=== PATIENT | female | born 1995 | race Caucasian/White ===

== ENCOUNTER → 2018-04-10 | Outpatient (CLI) | payer SELFPAY, OTHER ==
[2018-04-10 17:54] LABS: BASO % 0.3 % (0.0-1.0); EOS # 0.1 10^3/uL (0.0-0.50); HEMATOCRIT 37.8 % (36.0-47.0); IMMATURE GRANULOCYTE % 0.4 % (0-3.0); LYMPH # 1.5 10^3/uL (1.5-6.5); MEAN CORPUSCULAR HEMOGLOBIN 30.7 pg (27.0-33.0); MEAN CORPUSCULAR HGB CONC 34.4 g/dl (32.0-36.5); MEAN CORPUSCULAR VOLUME 89.2 fl (80.0-96.0); MONO # 0.3 10^3/uL (0.0-0.8); MONO % 3.9 % (0.0-5.0); NEUTROPHILS % 75.4 % (36.0-66.0); PLATELET COUNT, AUTOMATED 353 10^3/uL (150-450); RED BLOOD COUNT 4.24 10^6/uL (4.00-5.40); RED CELL DISTRIBUTION WIDTH 14.2 % (11.5-14.5)
[2018-04-10 21:10] LABS: CHLAMYDIA DNA AMPLIFICATION NEGATIVE (NEGATIVE); GC DNA AMPLIFICATION NEGATIVE (NEGATIVE)
[2018-04-12 09:18] LABS: RUBELLA IgG QUALITATIVE IMMUNE (IMMUNE)
[2018-04-12 09:33] LABS: HBsAg Prenatal NEGATIVE (NEGATIVE)
[2018-04-12 09:46] LABS: HEPATITIS C VIRUS ABY INDEX 0.1 INDEX (<0.8)
[2018-04-12 09:47] LABS: HIV 1&2 SCREEN CENTAUR NEGATIVE (NEGATIVE)
== END ==
LOC: M SMT 14:45
DX: Z34.82 Encounter for supervision of other normal pregnancy, second trimester (principal); Z3A.19 19 weeks gestation of pregnancy; Z36.89 Encounter for other specified antenatal screening
CPT/HCPCS: 86762

== ENCOUNTER → 2018-05-21 | Outpatient (CLI) | payer OTHER | LOC: M RAD 13:38 | DX: Z34.82 Encounter for supervision of other normal pregnancy, second trimester (principal) ==

== ENCOUNTER 2018-06-02 18:49 | Inpatient (IN) | payer OTHER ==
[2018-06-02] MEDS ORDERED: LACTATED RINGER'S 1000 ML IV (20:15)
[2018-06-02] MEDS ORDERED: LR 1,000 ML IV (20:15)
[2018-06-02 20:39] LABS: HEMATOCRIT 37.1 % (36.0-47.0); HEMOGLOBIN 12.5 g/dl (12.0-15.5); MEAN CORPUSCULAR HEMOGLOBIN 31.1 pg (27.0-33.0); MEAN CORPUSCULAR HGB CONC 33.7 g/dl (32.0-36.5); MEAN CORPUSCULAR VOLUME 92.3 fl (80.0-96.0); PLATELET COUNT, AUTOMATED 353 10^3/uL (150-450); RED BLOOD COUNT 4.02 10^6/uL (4.00-5.40); RED CELL DISTRIBUTION WIDTH 13.7 % (11.5-14.5); WHITE BLOOD COUNT 15.1 10^3/uL (4.0-10.0)
[2018-06-02 21:06] LABS: AMORPHOUS SEDIMENT SMALL (NEGATIVE); APPEARANCE, URINE CLOUDY (CLEAR); BACTERIA, URINE AUTO NEGATIVE (NEGATIVE); BILIRUBIN, URINE AUTO NEGATIVE (NEGATIVE); BLOOD, URINE BLOOD 2+ (NEGATIVE); COLOR, URINE YELLOW (YELLOW); GLUCOSE, URINE (UA) AUTO NEGATIVE (NEGATIVE); KETONE, URINE AUTO NEGATIVE (NEGATIVE); LEUKOCYTE ESTERASE, URINE AUTO 1+ (NEGATIVE); NITRITE, URINE AUTO NEGATIVE (NEGATIVE); PROTEIN, URINE AUTO NEGATIVE (NEGATIVE); RBC, URINE AUTO 18 /HPF (0-3); SPECIFIC GRAVITY URINE AUTO 1.012 (1.002-1.035); SQUAMOUS EPITHELIAL CELL UR AU 3 /HPF (0-6); UROBILINOGEN, URINE AUTO 0.2 mg/dL (0.0-2.0); WBC, URINE AUTO 4 /HPF (0-3)
[2018-06-02 21:10] LABS: ALBUMIN/GLOBULIN RATIO 0.83 (1.00-1.93); ALKALINE PHOSPHATASE 104 U/L (45-117); ALT/SGPT 18 U/L (12-78); ANION GAP 14 MEQ/L (8-16); AST/SGOT 15 U/L (7-37); BILIRUBIN,TOTAL 0.2 MG/DL (0.2-1.0); BLOOD UREA NITROGEN 11 MG/DL (7-18); CALCIUM LEVEL 9.1 MG/DL (8.5-10.1); CARBON DIOXIDE LEVEL 24 MEQ/L (21-32); CHLORIDE LEVEL 103 MEQ/L (98-107); CREATININE FOR GFR 0.57 MG/DL (0.55-1.30); GLOMERULAR FILTRATION RATE > 60.0 (>60); GLUCOSE, FASTING 98 MG/DL (70-100); POTASSIUM SERUM 3.7 MEQ/L (3.5-5.1); SODIUM LEVEL 141 MEQ/L (136-145); TOTAL PROTEIN 6.6 GM/DL (6.4-8.2)
[2018-06-02] MEDS: cefTRIAXone SOD 1 GM in D5W MINI-BAG PLUS 50 ML IV (23:15)
[2018-06-02] MEDS ORDERED: ONDANSETRON 4MG/2ML VIAL (J2405) IV (23:15)
[2018-06-02] MEDS: PROMETHAZINE INJ 25 MG/ML VIAL (J2550) IV (23:39)
[2018-06-02] MEDS: NS 1,000 ML IV (23:39)
[2018-06-02] MEDS: MORPHINE 10 MG/ML 1ML VIAL (J2270) SC (23:40)
[2018-06-02] MEDS: MORPHINE 10 MG/ML 1ML VIAL (J2270) IV (23:40)
[2018-06-03] MEDS: NS 1,000 ML IV ×3 (07:37→23:41)
[2018-06-03] MEDS ORDERED: TAMSULOSIN 0.4 MG CAP PO (09:00)
[2018-06-03] MEDS: SERTRALINE HCL 25 MG TABLET PO (12:39)
[2018-06-03] MEDS: PRENATAL VITAMINS CHEWABLE TABLET PO (12:39)
[2018-06-03] MEDS: PERCOCET 5MG/325MG TAB PO ×2 (14:00→18:46)
[2018-06-03] MEDS: cefTRIAXone SOD 1 GM in D5W MINI-BAG PLUS 50 ML IV (23:41)
[2018-06-04] MEDS: NS 1,000 ML IV ×3 (07:15→22:33)
[2018-06-04] MEDS: PRENATAL VITAMINS CHEWABLE TABLET PO (09:00)
[2018-06-04] MEDS ORDERED: fentaNYL 100 MCG/2 ML INJECTION (J3010) As Ordered (10:22)
[2018-06-04] MEDS ORDERED: LIDOCAINE 1% MDV 20ML VIAL As Ordered (10:28)
[2018-06-04] MEDS ORDERED: ISOVUE-300 61% 50ML VIAL (Q9967) As Ordered (10:35)
[2018-06-04] MEDS: PERCOCET 5MG/325MG TAB PO ×2 (11:52→19:33)
[2018-06-04] MEDS: SERTRALINE HCL 25 MG TABLET PO (13:07)
[2018-06-04] MEDS: cefTRIAXone SOD 1 GM in D5W MINI-BAG PLUS 50 ML IV (22:32)
[2018-06-05] MEDS: PERCOCET 5MG/325MG TAB PO (05:37)
[2018-06-05] MEDS: NS 1,000 ML IV (07:15)
[2018-06-05] MEDS: PRENATAL VITAMINS CHEWABLE TABLET PO (07:53)
[2018-06-05] MEDS: SERTRALINE HCL 25 MG TABLET PO (07:54)
[2018-06-05] MEDS: ACETAMINOPHEN 500 MG TAB PO ×2 (10:36→17:58)
[2018-06-05] MEDS: CEPHALEXIN 500 MG CAP PO (21:20)
[2018-06-06] MEDS: ACETAMINOPHEN 500 MG TAB PO ×2 (01:24→09:04)
[2018-06-06] MEDS: PRENATAL VITAMINS CHEWABLE TABLET PO (09:00)
[2018-06-06] MEDS: CEPHALEXIN 500 MG CAP PO ×2 (09:00→19:59)
[2018-06-06] MEDS: SERTRALINE HCL 25 MG TABLET PO (09:00)
[2018-06-06] MEDS: DOCUSATE SODIUM 100 MG CAP PO ×2 (13:11→19:59)
== END 2018-06-06 20:25 | DRG 951 ==
LOC: M LDO 18:49 → M OBS 06-03 14:20 → M MS5PR 06-05 22:00
PROC: 0T9030Z Drainage of Right Kidney with Drainage Device, Percutaneous Approach (ICD-10-PCS; principal; 2018-06-04)
DX: O23.02 Infections of kidney in pregnancy, second trimester (principal); F32.9 Major depressive disorder, single episode, unspecified; Z3A.27 27 weeks gestation of pregnancy; F41.9 Anxiety disorder, unspecified; O99.342 Other mental disorders complicating pregnancy, second trimester; N13.6 Pyonephrosis